=== PATIENT | male | born 1995 | race Two or more races ===

== ENCOUNTER 2020-01-21 22:05 | Emergency (ER) | payer MEDICAID, OTHER ==
[~2020-01-21] VITALS: Ht 188 cm; Wt 158.8 kg
[2020-01-21 22:59] LABS: Urine Bacteria FEW /hpf (None Seen); Urine Blood TRACE /uL (Negative); Urine Specific Gravity 1.027 (1.001-1.035); Urine WBC 284 /hpf (0 - 3)
[2020-01-21 23:12] LABS: Basophils # (auto) 0.1 10 ^3/uL (0-0.2); Basophils % (auto) 0.8 % (0.0-2.0); Eosinophils # (auto) 0.2 10 ^3/uL (0-0.8); Eosinophils % (auto) 2.5 % (0.0-7.0); Hematocrit 45.4 % (41.0-53.0); Hemoglobin 15.5 g/dL (13.5-17.5); Lymphocytes # (auto) 3.2 10 ^3/uL (0.4-5.4); Lymphocytes % (auto) 37.4 % (10.0-50.0); Mean Corpuscular Hemoglobin 32.5 pg (28.0-32.0); Mean Corpuscular Hgb Conc. 34.1 g/dL (32.0-36.0); Mean Corpuscular Volume 95.3 fL (80.0-100.0); Monocytes # (auto) 0.7 10 ^3/uL (0-1.3); Monocytes % (auto) 8.7 % (0.0-12.0); Neutrophils # (auto) 4.3 10 ^3/uL (1.6-8.6); Neutrophils % (auto) 50.6 % (37.0-80.0); Nucleated Red Blood Cells % 0.1 %; Platelet Count (auto) 270 10^3/uL (140-450); Red Blood Cells 4.76 10^6/uL (4.5-5.90); Red Cell Distribution Width 12.9 % (11.8-14.3); White Blood Cell 8.5 10^3/uL (4.4-10.8)
[2020-01-21 23:33] LABS: BUN/Creatinine Ratio 16.1; Calcium 8.6 mg/dL (8.5-10.1)
[2020-01-21 23:35] LABS: Bilirubin, Total 0.2 mg/dL (0.2-1.0); Total Protein 7.9 g/dL (6.4-8.2)
[2020-01-22 01:00] VITALS: BP 134/63
== END 2020-01-22 01:41 | disposition home or self-care (01) ==
LOC: ER 22:07
DX: N39.0 Urinary tract infection, site not specified (principal); F17.210 Nicotine dependence, cigarettes, uncomplicated
CPT/HCPCS: 36415; 74176; 80053; 81001; 82150; 83690; 85025

== ENCOUNTER 2021-03-01 05:20 | Emergency (ER) | payer MEDICAID ==
[~2021-03-01] VITALS: Ht 190.5 cm; Wt 181.4 kg
[2021-03-01 05:20] VITALS: BP 149/105
[2021-03-01] MEDS ORDERED: KETOROLAC TROMETH 60MG/2ML VIAL IM ONE (06:45)
== END 2021-03-01 07:24 | disposition home or self-care (01) ==
LOC: ER 05:20
DX: S39.012A Strain of muscle, fascia and tendon of lower back, initial encounter (principal); F17.210 Nicotine dependence, cigarettes, uncomplicated; X50.1XXA Overexertion from prolonged static or awkward postures, initial encounter; Y93.89 Activity, other specified; Y92.89 Other specified places as the place of occurrence of the external cause; Y99.8 Other external cause status
CPT/HCPCS: 96372; 99283; J1885

== ENCOUNTER 2022-02-17 02:55 | Emergency (ER) | payer MEDICAID ==
[~2022-02-17] VITALS: Ht 188 cm; Wt 158.8 kg
[2022-02-17] MEDS ORDERED: fentaNYL CITRATE 100 MCG/2 ML VL IV ONE (03:30)
[2022-02-17 04:00] VITALS: BP 129/73
[2022-02-17 04:22] LABS: Basophils # (auto) 0 10 ^3/uL (0-0.2); Basophils % (auto) 0.4 % (0.0-2.0); Eosinophils # (auto) 0.1 10 ^3/uL (0-0.8); Hematocrit 43.4 % (41.0-53.0); Hemoglobin 15.2 g/dL (13.5-17.5); Lymphocytes # (auto) 2.2 10 ^3/uL (0.4-5.4); Lymphocytes % (auto) 20.3 % (10.0-50.0); Mean Corpuscular Hemoglobin 32.3 pg (28.0-32.0); Mean Corpuscular Volume 92.2 fL (80.0-100.0); Monocytes # (auto) 0.6 10 ^3/uL (0-1.3); Monocytes % (auto) 5.3 % (0.0-12.0); Nucleated Red Blood Cells % 0.1 %; Red Cell Distribution Width 13.2 % (11.8-14.3)
[2022-02-17 04:39] LABS: Albumin 4.1 g/dL (3.4-5.0); BUN/Creatinine Ratio 12.4; Calcium 8.5 mg/dL (8.5-10.1); Potassium 3.3 mmol/L (3.5-5.1)
[2022-02-17 04:42] LABS: Bilirubin, Total 0.3 mg/dL (0.2-1.0)
[2022-02-17] MEDS ORDERED: HYDR-4902 PO (07:52)
[2022-02-17] MEDS ORDERED: IBUP600T28 PO (07:52)
== END 2022-02-17 05:28 | disposition home or self-care (01) ==
LOC: EDBD 02:55 → ER 02:55
DX: S93.05XA Dislocation of left ankle joint, initial encounter (principal); F17.210 Nicotine dependence, cigarettes, uncomplicated; Y08.89XA Assault by other specified means, initial encounter; Y93.89 Activity, other specified; Y92.89 Other specified places as the place of occurrence of the external cause; Y99.8 Other external cause status
CPT/HCPCS: 27840; 36415; 73600; 80053; 80320; 85025; 93005; 96374; 99285; J3010; 27750